=== PATIENT | male | born 1985 | race African-American/Black ===

== ENCOUNTER 2018-05-19 09:44 | Emergency (ER) | payer OTHER ==
[2018-05-19 10:01] VITALS: BP 150/98; PULSE 85; TEMP 98.5; BMI 33.2
--- NOTE | 2018-05-19 10:09 | PDOC ---
History of Present Illness - General Chief Complaint: Pain, Acute Stated Complaint: LEFT SHOULDER PAIN Time Seen by Provider: 05/19/18 09:48 History Source: Patient Exam Limitations: No Limitations - History of Present Illness Initial Comments: 05/19/18 10:14 32 yo male pmh s/p Achilles tendon repair (full rupture while playing basketball ) presents to the ED with 2 weeks of intermittent left shoulder pain that has increased in intensity and become constant over the last 4 days. Pt states he was playing basketball 1.5 weeks ago, when he had a fall and another player bumped the back of his shoulder leading to sudden onset worsening of pain however, pt was able to continue play basketball without difficulty. Pain is made worse with shoulder flexion past 90 degrees and tried NSAID medications yesterday which relieved pain. Denies coldness/numbness or weakness into the left lower arm or hand, denies warmth/swelling, recent illness, F/C/N/V Past History - Past Medical History Allergies/Adverse Reactions: Allergies Allergy/AdvReac Type Severity Reaction Status Date / Time No Known Allergies Allergy Verified 05/19/18 09:45 Home Medications: Ambulatory Orders NK [No Known Home Medication] 05/19/18 COPD: No - Immunization History Immunization Up to Date: No - Suicide/Smoking/Psychosocial Hx Smoking Status: No Smoking History: Never smoked Have you smoked in the past 12 months: No Number of Cigarettes Smoked Daily: 0 Hx Alcohol Use: Yes (OCASIONAL) Drug/Substance Use Hx: No Substance Use Type: None, Alcohol Review of Systems - Review of Systems Constitutional: No: Chills, Fever Respiratory: No: Shortness of Breath Cardiac (ROS): No: Chest Pain ABD/GI: No: Nausea, Vomiting Musculoskeletal: Yes: Other (left shoulder pain) Integumentary: No: Bruising, Change in Color Neurological: No: Numbness, Tingling, Weakness *Physical Exam - Vital Signs Last Vital Signs Temp Pulse Resp BP Pulse Ox 98.5 F 85 20 150/98 100 05/19/18 09:45 05/19/18 09:45 05/19/18 09:45 05/19/18 09:45 05/19/18 09:45 - Physical Exam General Appearance: Yes: Nourished, Appropriately Dressed. No: Apparent Distress HEENT: positive: EOMI Neck: negative: Tender, Tender lateral, Tender midline Respiratory/Chest: positive: Lungs Clear, Normal Breath Sounds. negative: Accessory Muscle Use Cardiovascular: positive: Regular Rhythm, Regular Rate, S1, S2. negative: Edema , JVD, Murmur Vascular Pulses: Dorsalis-Pedis (R): 4+, Doralis-Pedis (L): 4+ Gastrointestinal/Abdominal: positive: Flat, Soft. negative: Pulsatile Mass Musculoskeletal: positive: Normal Inspection Extremity: positive: Normal Capillary Refill. negative: Normal Range of Motion (AROM reduced in shoulder flexion, however, PROM leads to equal ROM when compared to right arm), Tender Integumentary: positive: Normal Color, Dry, Warm Neurologic: positive: Fully Oriented, Alert, Normal Mood/Affect, Normal Response , Motor Strength 5/5 Medical Decision Making - Medical Decision Making 32 yo male presents to ED with worsening left shoulder pain with shoulder flexion. AROM reduced due to pain however, PROM pt able to match R shoulder and arm actions without difficulty or pain. Neurovascularly intact, strength equal bilaterally, no deformities visualized or palpable on exam Vitals stable AOX3, NAD Discussed possibility of x ray for shoulder with pt, combined decision making led to no x ray to be taken on todays visit. Pt likely suffering from a muscle strain/sprain and x ray will not assist in diagnosis. Pt agrees with plan to rest the arm, ice, continue taking NSAIDs for pain and slowly stretch/exercise the arm. If pain and function continues to be a concern, an Orthopedic Doctor was referred to pt Pt agrees with and understands plan *DC/Admit/Observation/Transfer Diagnosis at time of Disposition: Left shoulder strain Qualifiers: Encounter type: initial encounter Qualified Code(s): S46.912A - Strain of unspecified muscle, fascia and tendon at shoulder and upper arm level, left arm , initial encounter - Discharge Dispostion Disposition: HOME Condition at time of disposition: Good Decision to Admit order: No - Referrals Referrals: Esa Caldwell DO [Staff Physician] - - Patient Instructions Printed Discharge Instructions: DI for Shoulder Pain Additional Instructions: Please see your Primary Doctor within the next week. Call the Orthopedic surgeon referred to you to set up an appointment if the pain and limited range of motion does not improve. Return to the ER for newe or concerning symptoms including but not limited to: high fevers, warmth to the arm, changes in sensation or weakness in the arm and hand, inability to move the left shoulder and arm. Continue taking over the counter NSAID medication as needed and directed on the packaging for pain along with ice. Thank you - Post Discharge Activity
--- NOTE | 2018-05-19 10:36 | PDOC ---
Attending Attestation - Resident Resident Name: Teja Padron - ED Attending Attestation I have performed the following: I have examined & evaluated the patient, The case was reviewed & discussed with the resident, I agree w/resident's findings & plan, Exceptions are as noted - HPI HPI: 05/19/18 10:10 32y M no pmhx, presents with complaint of L shoulder pain for the past 2 weeks. Was playing basketball 4 days ago when he fell (fell on his behind, fall broke by his r hand) and has been having more frequent pain on his L shoulder. The pain is exacerbated by abducting his L shoulder. it is a sharp, nonradiating pain, no other pain anywhere else including his chest, neck, back. no associated fever/chills, numbness/tingling/weakness. took alleve with improvement of his pain last night. - Physicial Exam PE: 05/19/18 10:36 General: no acute distress, well appearing, well nourished MSK: no focal bony or soft tissue ttp to his L shoulder, humerus, neck/cervical region. normal passive ROM of his L shoulder, pulses and sensation symmetric bilatearlly. pain reproduced with abduction of his L shoulder anteriorly and laterally. - Medical Decision Making 05/19/18 10:36 suspect msk cause - possible rotator cuff related no suspicion of fracture or dislocation will defer xray as do not think is necessary will recommend NSAIDS, rest, pmd/ortho fu return precautions were discussed
== END 2018-05-19 10:32 | disposition home or self-care (01) ==
LOC: FER 09:44
DX: S43.402A Unspecified sprain of left shoulder joint, initial encounter (principal); W51.XXXA Accidental striking against or bumped into by another person, initial encounter; Y93.67 Activity, basketball; Y92.310 Basketball court as the place of occurrence of the external cause
CPT/HCPCS: 99281-25

== ENCOUNTER 2019-11-24 11:25 | Emergency (ER) | payer OTHER ==
[2019-11-24] MEDS ORDERED: ACETAMINOPHEN 500 MG TABLET (FP) PO ONE (11:48)
[2019-11-24 11:49] VITALS: BP 135/85; PULSE 63; TEMP 98.7; BMI 34.4
--- NOTE | 2019-11-24 11:55 | PDOC ---
History of Present Illness - General Chief Complaint: Injury Stated Complaint: RIGHT THUMB INJURY Time Seen by Provider: 11/24/19 11:43 History Source: Patient Exam Limitations: No Limitations - History of Present Illness Initial Comments: 11/24/19 11:49 34YOM without significant PMH who p/w right thumbnail injury sustained 5 days ago when he slammed the thumb in a car door. Did not sustain any other injuries, did not fall or lose conscious. No breaks in his skin as a result of this. States only that it was throbbing the first night, has improved since that time but still fair amount of residual pain. He notes there was blood collection under the thumbnail immediately. Denies numbness, tingling, weakness, inability to move the thumb or any part of his body. Past History - Medical History Allergies/Adverse Reactions: Allergies Allergy/AdvReac Type Severity Reaction Status Date / Time No Known Allergies Allergy Verified 11/24/19 11:42 Home Medications: Ambulatory Orders NK [No Known Home Medication] 05/19/18 COPD: No - Immunization History Immunization Up to Date: No - Psycho-Social/Smoking History Smoking Status: No Smoking History: Never smoked Have you smoked in the past 12 months: No Number of Cigarettes Smoked Daily: 0 - Substance Abuse Hx (Audit-C & DAST Scrn) How often the patient has a drink containing alcohol: 2-4 times / month How often the patient has six or more drinks on one occasion: Never Score: In Men: 4 or > Positive; In Women: 3 or > Positive: 2 Screen Result (Pos requires Nsg. Audit-10AR): Negative In the last yr the pt used illegal drug/Rx for NonMed reason: No Score: Yes response is considered Positive: 0 Screen Result (Positive result requires Nsg. DAST-10): Negative Review of Systems - Review of Systems Able to Perform ROS?: Yes Comments:: 11/24/19 11:51 GEN: no fever, chills, malaise, or generalized weakness HEENT: no ear pain, congestion, sore throat, vision change, or eye pain CV: no chest pain, palpitations, lightheadedness, syncope, or edema RESP: no SOB, wheezing, or cough GI: no abdominal pain, nausea, vomiting, diarrhea, constipation, or rectal bleed : no dysuria, hematuria, or discharge MSK: right thumb injury, otherwise no muscle weakness or pain, no joint swelling or pain NEURO: no headache, vertigo, numbness, tingling, or focal weakness PSYCH: no SI, HI, or behavior change SKIN: no jaundice, rash, lesions, or unexplained bruises ROS otherwise negative except as noted in HPI *Physical Exam - Vital Signs Last Vital Signs Temp Pulse Resp BP Pulse Ox 98.7 F 63 15 135/85 100 11/24/19 11:36 11/24/19 11:36 11/24/19 11:36 11/24/19 11:36 11/24/19 11:36 - Physical Exam 11/24/19 11:52 GENERAL: well-appearing, A/Ox4, no distress, answers questions appropriately, pleasant HEENT: PERRLA, EOMI, moist mucous membranes NECK/BACK: no midline ttp, no spinal step-off or deformity, no hematoma, full ROM, neck supple CARDIOVASCULAR: regular rate/rhythm, no MGR, strong peripheral pulses, capillary refill <2 seconds, extremities wwp, no edema LUNGS/RESPIRATORY: no respiratory distress, CTAB GI/ABDOMEN: symmetric [id number], normoactive BS, soft, no ttp, no midline pulsatile masses : no CVA tenderness MSK/EXTREMITIES: right proximal thumbnail 25% subungal hematoma without any laceration, skin tear, abrasion, or other e/o trauma to the area, no muscle atrophy, no acute deformity SKIN: right thumbnailwarm and dry, no pallor, no jaundice, no rash, no pathologic-appearing bruising, no skin breakdown, no cuts, no lesions NEUROLOGICAL: GCS 15, CN II-XII grossly intact, 5/5 strength proximally and distally, no facial droop ED Treatment Course - RADIOLOGY Radiology Studies Ordered: Category Date Time Status FINGER(S) RIGHT [RAD] Stat Radiology 11/24/19 11:48 Ordered Medical Decision Making - Medical Decision Making 11/24/19 11:55 34YOM has subungal hematoma from slamming thumb in car door. 5 days ago Initial Vital Signs Temp Pulse Resp BP Pulse Ox 98.7 F 63 15 135/85 100 11/24/19 11:36 11/24/19 11:36 11/24/19 11:36 11/24/19 11:36 11/24/19 11:36 Most likely uncomplicated sububgal hematoma. Less likely any fracture or NV i njury as R/M/U nerve distributions are intact, no skin disruption, ROM is normal. This injury is not likely to benefit from trepination josr given that the injury occurred >48 hours ago. Will give Tylenol for pain control, thumb XR to r/o fracture, and dispo home with close outpatient follow-up. Provider Orders Category Date Time Status Acetaminophen [Tylenol -] Medication 11/24/19 12:18 Discontinued 1,000 mg .ROUTE .STK-MED ONE Acetaminophen [Tylenol -] Medication 11/24/19 11:48 Discontinued 975 mg PO ONCE ONE FINGER(S) RIGHT [RAD] Stat Radiology 11/24/19 11:48 Completed Medications Discontinued Medications Generic Name Dose Route Start Last Admin Trade Name Freq PRN Reason Stop Dose Admin Acetaminophen 975 mg 11/24/19 11:48 11/24/19 12:20 Tylenol - PO 11/24/19 11:49 975 mg ONCE ONE Administration Acetaminophen Confirm 11/24/19 12:18 Tylenol - Administered 11/24/19 12:19 Dose 1,000 mg .ROUTE .STK-MED ONE RAD/FINGER(S) RIGHT Right thumb: Injury. Pain. The right thumb submitted. There is a fracture through the base of the distal phalanx of the right thumb. This could be old as the fragment appears corticated. Correlation at the site suggested. Orthopedic follow-up may be of help. The other bones are intact There is minor distal phalanx fracture, nondisplaced and not significantly angulated. Patient still has full ROM but this may explain the continued pain he has been having. He is appropriate for discharge home and close outpatient f/u. Specific return precautions are discussed as noted in discharge instructions. He is given referral information to orthopedics clinic. Discharge - Discharge Information Problems reviewed: Yes Clinical Impression/Diagnosis: Subungual hematoma Thumb fracture Qualifiers: Encounter type: initial encounter Fracture type: closed Phalanx: distal Fracture alignment: nondisplaced Laterality: left Qualified Code(s): S62.525A - Nondisplaced fracture of distal phalanx of left thumb, initial encounter for closed fracture Condition: Good Disposition: HOME - Admission No - Follow up/Referral Referrals: Slava Soriano MD [Staff Physician] - Fidel Pickering MD [Staff Physician] - - Patient Discharge Instructions Additional Instructions: You were seen in the ER for a nailbed injury which is called subungual hematoma. These can be quite painful but they will resolve on their own. There was also a small fracture at the base of your thumb, for which you should follow up with an orthopedist. Please take Tylenol and Motrin as needed at home, following the instructions on the label, and you can also ice the area. Follow up with your regular doctor within 3 days. Also follow up with the orthopedist (we are giving you referral information). Return to the ER for any new or worsening symptoms, especially inability to move the thumb, worsening pain, fever, or other emergency concerns. - Post Discharge Activity
[2019-11-24] MEDS ORDERED: ACETAMINOPHEN 500 MG TABLET (FP) ONE (12:18)
== END 2019-11-24 13:10 | disposition home or self-care (01) ==
LOC: FER 11:25
DX: S60.10XA Contusion of unspecified finger with damage to nail, initial encounter (principal); S62.525A Nondisplaced fracture of distal phalanx of left thumb, initial encounter for closed fracture
CPT/HCPCS: 73140-TC-RT-FY; 99284-25

== ENCOUNTER 2020-05-08 19:12 | Emergency (ER) | payer OTHER ==
[2020-05-08 19:21] VITALS: BP 141/99; PULSE 83; TEMP 98.3; BMI 33.3
== END 2020-05-08 20:20 | disposition home or self-care (01) ==
LOC: FER 19:12
DX: S63.614A Unspecified sprain of right ring finger, initial encounter (principal)
CPT/HCPCS: 73140-TC-RT-FY; 99283-25

== ENCOUNTER 2021-01-11 15:07 | Emergency (ER) | payer OTHER ==
[2021-01-11 15:43] VITALS: BP 130/80; PULSE 78; TEMP 98.4; BMI 33.3
== END 2021-01-11 17:20 | disposition home or self-care (01) ==
LOC: FER 15:07
DX: S63.501A Unspecified sprain of right wrist, initial encounter (principal); X50.0XXA Overexertion from strenuous movement or load, initial encounter; Y93.67 Activity, basketball
CPT/HCPCS: 73110-TC-RT-FY; 99283-25

== ENCOUNTER 2021-10-05 16:18 | Emergency (ER) | payer OTHER ==
[2021-10-05 16:34] VITALS: BP 134/82; PULSE 74; RESP 18; TEMP 98.9; BMI 33.3
[2021-10-05] MEDS ORDERED: IBUPROFEN 400 MG TABLET (FP) PO ONE ×2 (17:20→17:56)
== END 2021-10-05 19:37 | disposition home or self-care (01) ==
LOC: FER 16:18
DX: S93.402A Sprain of unspecified ligament of left ankle, initial encounter (principal); X50.0XXA Overexertion from strenuous movement or load, initial encounter
CPT/HCPCS: 73610-TC-LT-FY; 99283-25

== ENCOUNTER 2022-12-11 19:30 | Emergency (ER) | payer OTHER ==
[2022-12-11 19:36] VITALS: BP 137/99; PULSE 65; RESP 16; TEMP 98.7; BMI 33.3
[2022-12-11] MEDS ORDERED: IBUPROFEN 600 MG TABLET (FP) PO ONE ×2 (20:03→20:06)
== END 2022-12-11 21:15 | disposition home or self-care (01) ==
LOC: FER 19:30
DX: M25.511 Pain in right shoulder (principal); S46.911A Strain of unspecified muscle, fascia and tendon at shoulder and upper arm level, right arm, initial encounter; X58.XXXA Exposure to other specified factors, initial encounter
CPT/HCPCS: 73030-TC-RT-FY; 99283-25

== ENCOUNTER 2024-05-31 08:31 | Day surgery (SDC) | payer OTHER ==
[2024-05-29 15:59] VITALS: BMI 32.9
[2024-05-31] MEDS ORDERED: VANCOMYCIN 1,000 MG VIAL (RESTRICTED TO ID ONLY) ONE (09:29)
[2024-05-31] MEDS ORDERED: BUPIVACAINE HCL/EPINEPHRINE/PF 30 ML VIAL IJ ONE (09:29)
[2024-05-31] MEDS ORDERED: PROPOFOL 40 ML ONE ×2 (11:05→12:55)
[2024-05-31] MEDS ORDERED: SUCCINYLCHOLINE CHLORIDE 200 MG/10 ML SYRINGE ONE (11:05)
[2024-05-31] MEDS ORDERED: MIDAZOLAM HCL 2 MG/2 ML SINGLE DOSE VIAL ONE (11:05)
[2024-05-31] MEDS ORDERED: oxyCODONE HCL 5 MG TABLET PO PRN (12:53)
[2024-05-31] MEDS ORDERED: ONDANSETRON 4 MG/2 ML VIAL IVPUSH PRN (12:53)
[2024-05-31] MEDS ORDERED: LACTATED RINGERS SOLUTION 1,000 ML IV SCH (13:00)
[2024-05-31] MEDS ORDERED: ACETAMINOPHEN INJECTION 100 ML ONE (13:01)
[2024-05-31] MEDS: ACETAMINOPHEN 1000 MG/100 ML BAG IVPB ONE (13:05)
[2024-05-31] MEDS ORDERED: FENTANYL CITRATE/PF 50 MCG/ML VIAL ONE (13:12)
[2024-05-31 13:59] VITALS: RESP 18; TEMP 97.3
[2024-05-31] MEDS ORDERED: oxyCODONE HCL 5 MG TABLET ONE (14:01)
[2024-05-31] MEDS: oxyCODONE HCL 5 MG TABLET PO ONE (14:05)
[2024-05-31 15:27] VITALS: BP 146/94; PULSE 88
== END 2024-05-31 15:56 | disposition home or self-care (01) ==
LOC: FASU 08:31
PROVIDERS: ATTEND Orthopaedic Surgery
PROC: 0LQN0ZZ Repair Right Lower Leg Tendon, Open Approach (ICD-10-PCS; principal; 2024-05-31 11:40)
DX: S86.011A Strain of right Achilles tendon, initial encounter (principal); X58.XXXA Exposure to other specified factors, initial encounter; Y93.9 Activity, unspecified; Y92.9 Unspecified place or not applicable
CPT/HCPCS: 94760; C1713; J0131